=== PATIENT | male | born 1985 | race Caucasian/White ===

== ENCOUNTER 2024-04-14 08:56 | Emergency (ER) | payer OTHER, MEDICAID ==
[~2024-04-14] VITALS: Ht 165.1 cm; Wt 54.4 kg
[2024-04-14 09:10] VITALS: BP 121/70; PULSE 60; RESP 20; TEMP 98.2; O2SAT 99
[2024-04-14] MEDS ORDERED: NAPR-337 PO (09:40)
[2024-04-14] MEDS: ACETAMINOPHEN 325 MG TAB PO ONE (09:45)
[2024-04-14 09:50] VITALS: BP 121/70; PULSE 60; RESP 20; TEMP 98.2; O2SAT 99
== END 2024-04-14 09:50 | disposition home or self-care (01) ==
LOC: MED 08:56
DX: S29.012A Strain of muscle and tendon of back wall of thorax, initial encounter (principal); S20.219A Contusion of unspecified front wall of thorax, initial encounter; F17.200 Nicotine dependence, unspecified, uncomplicated; V89.2XXA Person injured in unspecified motor-vehicle accident, traffic, initial encounter; Y93.89 Activity, other specified; Y92.89 Other specified places as the place of occurrence of the external cause; Y99.8 Other external cause status
CPT/HCPCS: 99282